=== PATIENT | male | born 1965 | race Caucasian/White ===

== ENCOUNTER 2022-06-01 05:57 | Day surgery (SDC) | payer OTHER ==
[2022-06-01] MEDS ORDERED: Lactated Ringers 1,000 ML IV SCH (06:30)
[2022-06-01] MEDS ORDERED: Xylocaine-Mpf 2% 5 Ml Vial ONE (07:27)
[2022-06-01] MEDS ORDERED: DIPRIVAN 200 MG/20 ML IV ONE (07:27)
[2022-06-01 08:40] VITALS: O2SAT 97
[2022-06-01 08:42] VITALS: BP 143/95; PULSE 68
--- NOTE | 2022-06-01 11:24 | OP ---
SURGERY DATE/TIME: 06/01/2022 0729 PREOPERATIVE DIAGNOSIS: Screening exam. POSTOPERATIVE DIAGNOSIS: Multiple small polyps in sigmoid colon and moderate diverticulosis. PROCEDURE: Colonoscopy with hot snare polypectomy. SURGEON: Dr. Ismael Johnson. ANESTHESIA: MAC. Medications given by anesthesia department. HISTORY: The patient is a 56-year-old white male patient presenting now for screening colonoscopy. He was appraised of the risks of the procedure including the risk of perforation, phlebitis, untoward reaction to medication, bleeding and missed lesions. The patient verbalized his understanding and desired to have the procedure performed. DESCRIPTION OF PROCEDURE: The patient was given the medications by the anesthesia department. He had continuous pulse oximetry, ECG monitoring, intermittent blood pressure monitoring during the examination. He was placed in the left lateral decubitus position. A digital rectal examination was performed and revealed normal anal sphincter tone, no masses and a normal prostate. The flexible Olympus pediatric colonoscope was used to intubate the rectum. A view of the colon was developed sequentially to the cecum. Upon insertion and withdrawal, including a retroflex view in the rectum was noted multiple small polyps and one larger polyp in the sigmoid colon. These were removed using hot polypectomy snare and retrieved for pathologic evaluation. No other mucosal lesions being encountered the scope was removed from the patient who tolerated the procedure well and was sent back to outpatient recovery in good condition. The prep was noted to be good.
== END 2022-06-01 08:55 | disposition home or self-care (01) ==
LOC: SDC 05:57
PROVIDERS: ATTEND Family Medicine
DX: Z12.11 Encounter for screening for malignant neoplasm of colon (principal); D12.7 Benign neoplasm of rectosigmoid junction; D12.5 Benign neoplasm of sigmoid colon; K57.30 Diverticulosis of large intestine without perforation or abscess without bleeding; E11.9 Type 2 diabetes mellitus without complications
CPT/HCPCS: 82947; J2704

== ENCOUNTER 2022-11-25 08:40 | Day surgery (SDC) | payer MEDICARE ==
[2022-11-25] MEDS ORDERED: LIDOCAINE HCL 1% 50 MG/5 ML VL PF IJ ONE (08:41)
[2022-11-25] MEDS ORDERED: Depo-Medrol 40 MG/ML IM ONE (08:41)
[2022-11-25] MEDS ORDERED: Sodium Chloride 0.9(Preservative Free) 10 ML IJ ONE (08:41)
[2022-11-25] MEDS ORDERED: DIPRIVAN 200 MG/20 ML IV ONE (10:08)
--- NOTE | 2022-11-25 10:50 | XRAY ---
Indication: Lumbar ROSELYN. Intraoperative fluoroscopy was provided for 13 seconds. 2 digital spot image submitted for interpretation demonstrates posterior needle tip projecting posterior to the lumbosacral junction interspace. Small amount of contrast injected for needle tip placement. Correlate with intraoperative findings/report.
--- NOTE | 2022-11-25 11:34 | XRAY ---
13 seconds of fluoroscopy was used in surgery for a lumbar ROSELYN.
[2022-11-25] MEDS ORDERED: Lactated Ringers 1,000 ML IV ONE (15:16)
== END 2022-11-25 10:50 | disposition home or self-care (01) ==
LOC: SDC-PAIN 08:40
PROVIDERS: ATTEND Psychiatry & Neurology Pain Medicine
DX: M54.16 Radiculopathy, lumbar region (principal); E11.9 Type 2 diabetes mellitus without complications; Z79.899 Other long term (current) drug therapy
CPT/HCPCS: 62323; 72100; 77003; 82947; J1030; J2001; J2704; Q9966

== ENCOUNTER 2024-03-18 17:06 | Emergency (ER) | payer MEDICARE ==
[2024-03-18] MEDS ORDERED: Adenocard IV 6 MG/2 ML IV ONE ×3 (17:07→17:12)
[2024-03-18 17:09] VITALS: PULSE 181; O2SAT 99
[2024-03-18] MEDS ORDERED: CARDIZEM DRIP 100 MG/100 ML D5W 0 ML IV ONE (17:14)
[2024-03-18] MEDS ORDERED: CARDIZEM DRIP 100 MG/100 ML D5W 100 ML IV ONE (17:16)
[2024-03-18] MEDS ORDERED: AMIODARONE IV ONE (17:17)
[2024-03-18] MEDS ORDERED: Cordarone 150 MG/3 ML Injection ONE (17:24)
[2024-03-18] MEDS ORDERED: Sodium Chloride 0.9% 100 ML ONE (17:25)
[2024-03-18 17:27] LABS: BASOPHIL % 0.8 % (0.2-1.2); Basophil (Absolute #) 0.08 x10^3/uL (0.01-0.08); Eosinophil % 1.4 % (0.8-7.0); Eosinophil (Absolute #) 0.14 x10^3/uL (0.04-0.54); Hematocrit 44.4 % (40.1-51.0); Hemoglobin 15.3 g/dL (13.7-17.5); IMMATURE GRAN # 0.03 x10^3u/L (0.001-0.031); IMMATURE GRAN % 0.3 % (0.001-0.429); Mean Cell Volume 96.5 fL (79.0-92.2); Mean Corpuscular Hemoglobin 33.3 pg (25.7-32.2); Mean Corpuscular Hgb Concent. 34.5 g/dL (32.3-36.5); Mean Platelet Volume 9.3 fL (9.4-12.4); Monocyte (Absolute #) 0.96 x10^3/uL (0.30-0.82); Monocytes % 9.6 % (5.3-12.2); Neutrophil % 56.9 % (34.0-67.9); Platelet Count 251 x10^3/uL (163-337); Red Cell Distribution Width 12.9 % (11.6-14.4)
[2024-03-18] MEDS ORDERED: Sodium Chloride 0.9% 1000 ML 1,000 ML ONE (17:39)
[2024-03-18 17:44] LABS: INR 1.21 (0.8-3.0)
--- NOTE | 2024-03-18 17:48 | ERPHSYRPT ---
- History of Present Illness Time Seen by Provider: 03/18/24 17:40 Source: patient, family Exam Limitations: no limitations Patient Subjective Stated Complaint: SVT Triage Nursing Assessment: Pt brought to the ER by his , tachycardic, denies pain, has a pacemaker and defibrillator, pt's heart rate is 185 bpm, pulses bounding, skin n/w/d, hx of NM, recently found out that he has 2 DVT's Physician History: Patient is 58-year-old male with significant past medical history of coronary artery disease stent placement into coronary arteries history of diabetes history of hypertension history of myocardial infarction history of defibrillator placement history of recent deep vein thrombosis and thrombophlebitis in lower extremity history of hypogonadism and history of Centi petal obesity abdominal obesity was in his usual state of health around 2 hours ago after he ate suddenly he started feeling palpitation he felt like his heart is going to come out so he was brought into the emergency room via private car by his . When patient walked into the emergency room patient is alert awake the only complaint he has was palpitation and feels like his heart is going to jump out he denies any chest pain except for some burning pain on the right side of the chest he denies any nausea vomiting fever chills any blood in the stool or urine. Recently patient underwent some investigation for lower extremity and they found to have a thrombophlebitis in deep vein thrombosis so patient was started on Xarelto for last 2 days and patient is already on Plavix. Patient denies any shortness of breath headache nausea vomiting. Patient is alert awake oriented to time place and person and answering all the question about his health in the emergency room. Timing/Duration: today Activities at Onset: none Severity of Pain-Max: none Severity of Pain-Current: none Modifying Factors: Improves With: nothing Nitro Today/Relief: no nitro taken today Aspirin Treatment Today: no aspirin today Associated Symptoms: No nausea, No vomiting, No abdominal pain, No shortness of breath, No heartburn, No syncope Prior Chest Pain/Cardiac Workup: cardiac cath, echocardiography, heart attack Allergies/Adverse Reactions: No Known Drug Allergies Allergy (Verified 03/18/24 17:22) Home Medications: Aspirin EC 81 mg [Ecotrin 81 mg] 81 mg PO DAILY 05/15/22 [History] Atorvastatin Calcium 40 mg PO DAILY 05/15/22 [History] Clopidogrel Bisulfate [Clopidogrel] 75 mg PO DAILY 05/15/22 [History] Fenofibrate Nanocrystallized [Fenofibrate] 145 mg PO DAILY 05/15/22 [History] Glipizide 10 mg [Glucotrol 10 MG] 10 mg PO BID 05/15/22 [History] Levothyroxine Sodium [Synthroid] 175 mg PO DAILY 05/15/22 [History] Meloxicam 15 mg [Meloxicam 15 MG] 15 mg PO DAILY 05/15/22 [History] Metformin HCl 500 mg [Glucophage 500 MG] 1,000 mg PO BID 05/15/22 [History] Metoprolol Tartrate 50 mg [Lopressor 50 MG] 50 mg PO DAILY 05/15/22 [History] Nitroglycerin 0.4 mg (Ed) [Nitrostat 0.4 MG (ED)] 0.4 mg PO UD PRN 05/15/22 [History] Sacubitril/Valsartan [Entresto 49 mg-51 mg Tablet] 1 tab PO DAILY 05/15/22 [History] Testosterone Cypionate 1 ml IM UD 05/15/22 [History] Hydrocodone/Acetaminophen [Hydrocodone-Acetamin 7.5-325] 1 tab PO TID 03/18/24 [History] Rivaroxaban [Xarelto] 20 mg PO BID 03/18/24 [History] Hx Tetanus, Diphtheria Vaccination/Date Given: Yes Hx Influenza Vaccination/Date Given: Yes Hx Pneumococcal Vaccination/Date Given: No Travel Risk - International Travel Have you traveled outside of the country in past 3 weeks: No - Emerging Infectious Disease Are you exhibiting symptoms associated with any current EIDs: No - Review of Systems Constitutional: No Fever, No Chills Eyes: No Symptoms Ears, Nose, & Throat: No Symptoms Respiratory: No Cough, No Dyspnea Cardiac: Palpitations, No Chest Pain, No Edema, No Syncope Abdominal/Gastrointestinal: No Abdominal Pain, No Nausea, No Vomiting, No Diarrhea Genitourinary Symptoms: No Dysuria Musculoskeletal: No Back Pain, No Neck Pain Skin: No Rash Neurological: No Dizziness, No Focal Weakness, No Sensory Changes Psychological: No Symptoms Endocrine: No Symptoms All Other Systems: Reviewed and Negative - Past Medical History Pertinent Past Medical History: Yes Neurological History: Migraines Cardiac History: Congestive Heart Failure, High Cholesterol, Hypertension, Myocardial Infarction (NM) Respiratory History: CHF Endocrine Medical History: Diabetes Type II, Hypothyroidism Musculoskeletal History: Fractures, Osteoarthritis, Osteoporosis GI Medical History: No Pertinent History History: No Pertinent History Psycho-Social History: No Pertinent History Male Reproductive Disorders: No Pertinent History Other Medical History: PMHX: NM 2017 WITH STENT X 2 AND PACEMAKER/DEFIB 12/2020 - Past Surgical History Past Surgical History: Yes Neuro Surgical History: No Pertinent History Cardiac: Cardiac Stent, Pacemaker Respiratory: No Pertinent History Gastrointestinal: Other Genitourinary: No Pertinent History Musculoskeletal: No Pertinent History Male Surgical History: No Pertinent History Other Surgical History: colonoscopy, 2 cardiac stints - Social History Smoking Status: Current every day smoker How long have you smoked: 35 Exposure to second hand smoke: Yes Drug Use: none Patient Lives Alone: No - Social Determinants of Health Will the patient participate in the screening: Yes Do you worry about a steady place to live?: No Do you have any problems with any of the following?: No known problems In the past 12 months,have you had to go without utilities?: No Transportation Issues: No Has anyone in your support network made you feel unsafe?: No Have you or anyone in your house had to go without enough: No - Nursing Vital Signs Nursing Vital Signs: Initial Vital Signs Pulse Rate 181 H 03/18/24 17:07 Respiratory Rate 17 03/18/24 17:07 Blood Pressure 138/103 03/18/24 17:07 O2 Sat by Pulse Oximetry 99 03/18/24 17:07 Pain Scale Pain Intensity 0 - Physical Exam General Appearance: no apparent distress, alert Eye Exam: PERRL/EOMI, eyes nml inspection Ears, Nose, Throat Exam: normal ENT inspection, moist mucous membranes Neck Exam: normal inspection, non-tender, supple Respiratory Exam: normal breath sounds, lungs clear, No respiratory distress Cardiovascular Exam: tachycardia, No edema Gastrointestinal/Abdomen Exam: soft, No tenderness, No mass Back Exam: normal inspection, No CVA tenderness, No vertebral tenderness Extremity Exam: normal inspection, normal range of motion Neurologic Exam: alert, oriented x 3, cooperative, normal mood/affect, nml cerebellar function, sensation nml, No motor deficits Skin Exam: normal color, warm, dry Lymphatic Exam: No adenopathy SpO2: 99 - Course Nursing assessment & vital signs reviewed: Yes EKG Interpreted by Me: SVT Rhythm Strip: SVT - Radiology Exams Chest X-ray Interpretation: Interpreted by me, Reviewed by me Ordered Tests: Active Orders 24 hr Category Date Time Status Oyster Opener STAT Care 03/18/24 17:37 Active CHEST 1 VIEW (PORTABLE) Stat Exams 03/18/24 17:23 Ordered CBC W DIFF Stat Lab 03/18/24 17:15 Completed CMP Stat Lab 03/18/24 17:15 Completed MAGNESIUM Stat Lab 03/18/24 17:15 Completed NT PRO BNPII Stat Lab 03/18/24 17:15 Completed PT INR [PROTIME WITH INR] Stat Lab 03/18/24 17:15 Completed PTT Stat Lab 03/18/24 17:15 Completed TROPONIN Q4H Lab 03/18/24 17:15 Completed TROPONIN Q4H Lab 03/18/24 21:30 Ordered Medication Summary Discontinued Medications Generic Name Dose Route Start Last Admin Trade Name Freq PRN Reason Stop Dose Admin Amiodarone HCl Confirm 03/18/24 17:24 Amiodarone Hcl 150 Mg/3 Ml Vial Administered 03/18/24 17:25 Dose 150 mg .ROUTE .STK-MED ONE Diltiazem HCl Confirm 03/18/24 17:14 Cardizem Drip 100 Mg/100 Ml D5w Administered 03/18/24 17:15 Dose 100 mls @ ud IV .STK-MED ONE Diltiazem HCl Confirm 03/18/24 17:16 Cardizem Drip 100 Mg/100 Ml D5w Administered 03/18/24 17:17 Dose 100 mls @ ud IV .STK-MED ONE Amiodarone HCl/Dextrose Confirm 03/18/24 17:17 Nexterone 360 Mg/200 Ml Bag Administered 03/18/24 17:18 Dose 360 mg in 200 mls @ ud IV .STK-MED ONE Sodium Chloride Confirm 03/18/24 17:25 Sodium Chloride 0.9% Administered 03/18/24 17:26 Dose 100 mls @ ud .ROUTE .STK-MED ONE Sodium Chloride Confirm 03/18/24 17:39 Sodium Chloride 0.9% 1000 Ml Administered 03/18/24 17:40 Dose 1,000 mls @ ud .ROUTE .STK-MED ONE Lab/Rad Data: Laboratory Result Diagrams 03/18/24 17:15 03/18/24 17:15 Laboratory Results 03/18/24 03/18/24 03/18/24 Range/Units 17:15 17:15 17:15 WBC (4.23-9.07) x10^3/uL RBC (4.63-6.08) x10^6/uL Hgb (13.7-17.5) g/dL Hct (40.1-51.0) % MCV (79.0-92.2) fL MCH (25.7-32.2) pg MCHC (32.3-36.5) g/dL RDW (11.6-14.4) % Plt Count (163-337) x10^3/uL MPV (9.4-12.4) fL Gran % (34.0-67.9) % Immature Gran % (Auto) (0.001-0.429) % Nucleat RBC Rel Count (0.00-0.2) % Eos # (Auto) (0.04-0.54) x10^3/uL Immature Gran # (Auto) (0.001-0.031) x10^3u/L Absolute Lymphs (auto) (1.32-3.57) x10^3/uL Absolute Monos (auto) (0.30-0.82) x10^3/uL Absolute Nucleated RBC (0.00-0.012) x10^3u/L Lymphocytes % (21.8-53.1) % Monocytes % (5.3-12.2) % Eosinophils % (0.8-7.0) % Basophils % (0.2-1.2) % Absolute Granulocytes (1.78-5.38) x10^3/uL Basophils # (0.01-0.08) x10^3/uL PT 13.0 H (9.4-12.5) SECONDS INR 1.21 (0.8-3.0) APTT 39.0 H (25.1-36.5) SECONDS Sodium 137 (135-145) mmol/L Potassium 3.9 (3.5-5.1) mmol/L Chloride 104 (98-107) mmol/L Carbon Dioxide 21 L (22-30) mmol/L Anion Gap 15.1 H (5-15) MEQ/L BUN 19 (9-20) mg/dL Creatinine 1.07 (0.66-1.25) mg/dL Estimated GFR 80.9 ML/MIN Glucose 133 H (74-106) mg/dL Calcium 9.5 (8.4-10.2) mg/dL Magnesium 1.8 (1.6-2.3) mg/dL Total Bilirubin 0.50 (0.2-1.3) mg/dL AST 33 (17-59) U/L ALT 29 (0-50) U/L Alkaline Phosphatase 40 (38-126) U/L Troponin I < 0.012 (0.000-0.033) ng/mL NT-Pro-B Natriuret Pep 96.1 (<300) pg/mL Serum Total Protein 7.5 (6.3-8.2) g/dL Albumin 4.6 (3.5-5.0) g/dL 03/18/24 Range/Units 17:15 WBC 10.0 H (4.23-9.07) x10^3/uL RBC 4.60 L (4.63-6.08) x10^6/uL Hgb 15.3 (13.7-17.5) g/dL Hct 44.4 (40.1-51.0) % MCV 96.5 H (79.0-92.2) fL MCH 33.3 H (25.7-32.2) pg MCHC 34.5 (32.3-36.5) g/dL RDW 12.9 (11.6-14.4) % Plt Count 251 (163-337) x10^3/uL MPV 9.3 L (9.4-12.4) fL Gran % 56.9 (34.0-67.9) % Immature Gran % (Auto) 0.3 (0.001-0.429) % Nucleat RBC Rel Count 0.0 (0.00-0.2) % Eos # (Auto) 0.14 (0.04-0.54) x10^3/uL Immature Gran # (Auto) 0.03 (0.001-0.031) x10^3u/L Absolute Lymphs (auto) 3.10 (1.32-3.57) x10^3/uL Absolute Monos (auto) 0.96 H (0.30-0.82) x10^3/uL Absolute Nucleated RBC 0.00 (0.00-0.012) x10^3u/L Lymphocytes % 31.0 (21.8-53.1) % Monocytes % 9.6 (5.3-12.2) % Eosinophils % 1.4 (0.8-7.0) % Basophils % 0.8 (0.2-1.2) % Absolute Granulocytes 5.70 H (1.78-5.38) x10^3/uL Basophils # 0.08 (0.01-0.08) x10^3/uL PT (9.4-12.5) SECONDS INR (0.8-3.0) APTT (25.1-36.5) SECONDS Sodium (135-145) mmol/L Potassium (3.5-5.1) mmol/L Chloride (98-107) mmol/L Carbon Dioxide (22-30) mmol/L Anion Gap (5-15) MEQ/L BUN (9-20) mg/dL Creatinine (0.66-1.25) mg/dL Estimated GFR ML/MIN Glucose (74-106) mg/dL Calcium (8.4-10.2) mg/dL Magnesium (1.6-2.3) mg/dL Total Bilirubin (0.2-1.3) mg/dL AST (17-59) U/L ALT (0-50) U/L Alkaline Phosphatase (38-126) U/L Troponin I (0.000-0.033) ng/mL NT-Pro-B Natriuret Pep (<300) pg/mL Serum Total Protein (6.3-8.2) g/dL Albumin (3.5-5.0) g/dL - Progress Progress: unchanged Air Movement: good Progress Note: 03/18/24 17:45 As soon as patient was put on bed after getting IV access adenosine 6 mg followed by 12 mg IV given. It did not reduce the patient heart rate. Patient was given 20 mg Cardizem IV push and followed by 10 mg/h Cardizem drip started which also did not really decrease the heart rate. Patient is also given amiodarone 150 mg bolus which also did not reduce patient's heart rate. Dr. Carvalho cardiology service who is covering for Dr. Lagunas) patient is seeing Dr. Riggins he has a manufacturing teacher (close. He advised patient to be transferred to [facility]. [facility] transfer center contacted. Dr. Jasso hospitalist call and I gave all the information about patient. We are waiting for ICU bed at [facility]. Blood Culture(s) Obtained: No Antibiotics given: No Discussed with Dr.: Other (Dr Carvalho (Cardiology) Dr Jasso ( Hospitalist)) Will see patient in: other (Transfer to [facility] ICU Rm [id number]) - Departure Departure Disposition: Transfer ([facility] ICU) Clinical Impression: Ventricular tachyarrhythmia Condition: Fair Critical Care Time: Yes Critical Care Time(excluding separately billable procedures): Critical 30-74 mins Referrals: JJ STEPHENS, [employer] [Primary Care Provider] - Follow up/PCP as directed Instructions: Tachycardia (DC)
[2024-03-18 17:49] VITALS: BP 101/78; RESP 12
[2024-03-18 17:52] LABS: ALBUMIN 4.6 g/dL (3.5-5.0); ANION GAP 15.1 MEQ/L (5-15); BILIRUBIN,TOTAL 0.5 mg/dL (0.2-1.3); Calcium 9.5 mg/dL (8.4-10.2); Creatinine 1 1.07 mg/dL (0.66-1.25); EST GLOMERULAR FILTRATION RATE 80.9 ML/MIN; MAGNESIUM 1.8 mg/dL (1.6-2.3); NT PRO BNPII 96.1 pg/mL (<300); Potassium 3.9 mmol/L (3.5-5.1); Total Protein 7.5 g/dL (6.3-8.2)
[2024-03-18] MEDS ORDERED: VERSED 5 MG/5 ML ONE (18:07)
== END 2024-03-18 18:15 | disposition short-term general hospital (02) ==
LOC: ED 17:06
DX: R00.2 Palpitations (principal); F17.200 Nicotine dependence, unspecified, uncomplicated; R00.0 Tachycardia, unspecified; Z79.01 Long term (current) use of anticoagulants; Z79.899 Other long term (current) drug therapy; I25.2 Old myocardial infarction; I11.0 Hypertensive heart disease with heart failure; I50.9 Heart failure, unspecified
CPT/HCPCS: 36000; 36415; 80053; 83735; 83880; 84484; 85025; 85610; 85730; 93005; 93041; 99284; 99291; J0153; J0282; J2250

== ENCOUNTER 2024-11-09 05:48 | Observation (INO) | payer MEDICARE ==
--- NOTE | 2024-11-09 06:38 | ERPHSYRPT ---
- History of Present Illness Time Seen by Provider: 11/09/24 06:00 Historian: patient Exam Limitations: no limitations Patient Subjective Stated Complaint: pt reports RLQ abdominal pain beginning 11/08/24, reports his pain has increased since that time, pt reports he has diverticulitis but this does not feel like that type of pain, reports normal BM this morning. pt reports he had a heart cath on 10/30/24. Triage Nursing Assessment: pt is aox3, pupils perrl, afebrile, resps easy and non labored, cap refill < 3 seconds, radial pulses strong and equal, pt abd round, tender to the RLQ, bowel sounds present. pt skin pink warm dry. Physician History: Patient is a 58-year-old male history of diabetes hypertension hypercholesterolemia congestive heart failure [place] with cardiac stent, PE current smoker on Xarelto presents to our ED for evaluation of right lower quadrant pain. Patient states pain started yesterday and has got progressively worse. Pain described as an ache that is localized. No radiation. Patient states he has a history of diverticulitis but states that the current symptomology feels different. No associated nausea or vomiting. No chest pain or shortness of breath. No diarrhea no rash. Last bowel movement was this morning. Patient states he was normal. Patient advises that he had a heart cath on October 30, 2024. The right groin was accessed. However patient states that the pain is much more proximal in the abdomen. Symptoms are moderate in intensity. Patient declined pain medication. He voices no other complaints or concerns at this time. Portions of this note were created with voice recognition technology. There may be grammatical, spelling, punctuation or sound alike errors Timing/Duration: yesterday Activities at Onset: none Quality: aching Abdominal Pain Onset Location: RLQ Pain Radiation: no radiation Severity of Pain-Max: moderate Severity of Pain-Current: mild Modifying Factors: Improves With: palpation Associated Symptoms: denies symptoms Previous symptoms: no prior history Allergies/Adverse Reactions: No Known Drug Allergies Allergy (Verified 11/09/24 06:08) Home Medications: Aspirin EC 81 mg [Ecotrin 81 mg] 81 mg PO DAILY 05/15/22 [History] Atorvastatin Calcium 40 mg PO DAILY 05/15/22 [History] Fenofibrate Nanocrystallized [Fenofibrate] 145 mg PO DAILY 05/15/22 [History] Glipizide 10 mg [Glucotrol 10 MG] 10 mg PO BID 05/15/22 [History] Levothyroxine Sodium [Synthroid] 175 mg PO DAILY 05/15/22 [History] Nitroglycerin 0.4 mg (Ed) [Nitrostat 0.4 MG (ED)] 0.4 mg PO UD PRN 05/15/22 [History] Testosterone Cypionate 1 ml IM UD 05/15/22 [History] Rivaroxaban [Xarelto] 20 mg PO DAILY 03/18/24 [History] Clopidogrel Bisulfate [Clopidogrel] 75 mg PO DAILY 11/09/24 [History] Hydrocodone/Acetaminophen [Hydrocodone-Acetamin 10-325 mg] 1 each PO TID 11/09/24 [History] Spironolactone 25 mg [Aldactone 25 MG] 50 mg PO DAILY 11/09/24 [History] Valsartan 320 mg PO DAILY 11/09/24 [History] carvediloL [Carvedilol] 37.5 mg PO DAILY 11/09/24 [History] Hx Tetanus, Diphtheria Vaccination/Date Given: Yes Hx Influenza Vaccination/Date Given: No Hx Pneumococcal Vaccination/Date Given: No Immunizations Up to Date: No Travel Risk - International Travel Have you traveled outside of the country in past 3 weeks: No - Emerging Infectious Disease Are you exhibiting symptoms associated with any current EIDs: No - Review of Systems Constitutional: No Symptoms, No Fever, No Chills Eyes: No Symptoms Ears, Nose, & Throat: No Symptoms Respiratory: No Symptoms, No Cough, No Dyspnea Cardiac: No Symptoms, No Chest Pain, No Edema, No Syncope Abdominal/Gastrointestinal: No Symptoms, No Abdominal Pain, No Nausea, No Vomiting, No Diarrhea Genitourinary Symptoms: No Symptoms, No Dysuria Musculoskeletal: No Symptoms, No Back Pain, No Neck Pain Skin: No Symptoms, No Rash Neurological: No Symptoms, No Dizziness, No Focal Weakness, No Sensory Changes Psychological: No Symptoms Endocrine: No Symptoms Hematologic/Lymphatic: No Symptoms Immunological/Allergic: No Symptoms All Other Systems: Reviewed and Negative - Past Medical History Pertinent Past Medical History: Yes Neurological History: Migraines Cardiac History: Congestive Heart Failure, High Cholesterol, Hypertension, Myocardial Infarction ([place]) Respiratory History: CHF, Pulmonary Embolism Endocrine Medical History: Diabetes Type II, Hypothyroidism Musculoskeletal History: Fractures, Osteoarthritis, Osteoporosis GI Medical History: No Pertinent History History: No Pertinent History Psycho-Social History: No Pertinent History Male Reproductive Disorders: No Pertinent History Other Medical History: PMHX: [place] 2017 WITH STENT X 2 AND PACEMAKER/DEFIB 12/2020. Cardiology: [facility]. 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 - Past Surgical History Past Surgical History: Yes Neuro Surgical History: No Pertinent History Cardiac: Cardiac Stent, Internal Defibrillator, Pacemaker Respiratory: No Pertinent History Gastrointestinal: Hernia Repair, Other Genitourinary: No Pertinent History Musculoskeletal: No Pertinent History Male Surgical History: No Pertinent History Other Surgical History: colonoscopy, 2 cardiac stints - Social History Smoking Status: Current every day smoker How long have you smoked: 35 Exposure to second hand smoke: Yes Drug Use: none - Social Determinants of Health Will the patient participate in the screening: Yes Do you worry about a steady place to live?: No Do you have any problems with any of the following?: No known problems In the past 12 months,have you had to go without utilities?: No Transportation Issues: No Has anyone in your support network made you feel unsafe?: No Have you or anyone in your house had to go w/o enough food: No - Nursing Vital Signs Nursing Vital Signs: Initial Vital Signs Temperature 97 F 11/09/24 05:53 Pulse Rate 70 11/09/24 05:53 Respiratory Rate 18 11/09/24 05:53 Blood Pressure 147/89 11/09/24 05:53 O2 Sat by Pulse Oximetry 100 11/09/24 05:53 Pain Scale Pain Intensity 6 - Physical Exam General Appearance: no apparent distress, alert Eye Exam: PERRL/EOMI, eyes nml inspection Ears, Nose, Throat Exam: normal ENT inspection, moist mucous membranes Neck Exam: normal inspection, full range of motion Respiratory Exam: normal breath sounds, lungs clear, No respiratory distress Cardiovascular Exam: regular rate/rhythm, normal heart sounds Gastrointestinal/Abdomen Exam: soft, tenderness (Tenderness palpation right lower quadrant at McBurney's point. Overlying soft tissue intact. No signs of trauma.), No mass Back Exam: normal inspection, normal range of motion, No CVA tenderness, No vertebral tenderness Extremity Exam: normal inspection, normal range of motion, pelvis stable Neurologic Exam: alert, oriented x 3, cooperative, normal mood/affect, sensation nml, No motor deficits Skin Exam: normal color, warm, dry Lymphatic Exam: No adenopathy SpO2 Interpretation: normal SpO2: 100 O2 Delivery: Room Air - Course Nursing assessment & vital signs reviewed: Yes Ordered Tests: Active Orders 24 hr Category Date Time Status IV Insertion STAT Care 11/09/24 06:13 Active ABDOMEN AND PELVIS W/0 CONTRAS [CT] Stat Exams 11/09/24 06:13 Taken CBC W DIFF Stat Lab 11/09/24 06:46 Completed CMP Stat Lab 11/09/24 06:46 Received TROPONIN Q4H Lab 11/09/24 06:46 Received TROPONIN Q4H Lab 11/09/24 10:15 Ordered TROPONIN Q4H Lab 11/09/24 14:15 Ordered UA W/RFX UR CULTURE Stat Lab 11/09/24 06:22 Received Lab/Rad Data: Laboratory Result Diagrams 11/09/24 06:46 Laboratory Results 11/09/24 Range/Units 06:46 WBC 9.7 H (4.23-9.07) x10^3/uL RBC 3.86 L (4.63-6.08) x10^6/uL Hgb 12.6 L (13.7-17.5) g/dL Hct 37.6 L (40.1-51.0) % MCV 97.4 H (79.0-92.2) fL MCH 32.6 H (25.7-32.2) pg MCHC 33.5 (32.3-36.5) g/dL RDW 13.0 (11.6-14.4) % Plt Count 236 (163-337) x10^3/uL MPV 9.0 L (9.4-12.4) fL Gran % 81.7 H (34.0-67.9) % Immature Gran % (Auto) 0.5 H (0.001-0.429) % Nucleat RBC Rel Count 0.0 (0.00-0.2) % Eos # (Auto) 0.10 (0.04-0.54) x10^3/uL Immature Gran # (Auto) 0.05 H (0.001-0.031) x10^3u/L Absolute Lymphs (auto) 0.95 L (1.32-3.57) x10^3/uL Absolute Monos (auto) 0.64 (0.30-0.82) x10^3/uL Absolute Nucleated RBC 0.00 (0.00-0.012) x10^3u/L Lymphocytes % 9.8 L (21.8-53.1) % Monocytes % 6.6 (5.3-12.2) % Eosinophils % 1.0 (0.8-7.0) % Basophils % 0.4 (0.2-1.2) % Absolute Granulocytes 7.87 H (1.78-5.38) x10^3/uL Basophils # 0.04 (0.01-0.08) x10^3/uL - Progress Progress: improved Progress Note: 58-year-old male presents to emergency department for evaluation of right lower quadrant pain. Physical exam significant for tenderness palpation of right lower quadrant at McBurney's point. Patient declined pain medication. Lab workup ordered. Results pending. CT abdomen pelvis ordered. Results pending. It is currently the change of shift. Patient endorsed to incoming physician who will follow up on labs and imaging studies and make final disposition. Portions of this note were created with voice recognition technology. There may be grammatical, spelling, punctuation or sound alike errors Complexity of problem addressed is moderate acute complicated. No critical care time. Complexity of data reviewed and analyzed is extensive. Test ordered test reviewed results analyzed and correlated clinically with history and physical exam. Risk of complication and or risk of morbidity/mortality of patient management is high. Vital stable. Time spent to disposition patient is approximately 15 minutes. Plan of care established for shared decision making. No social determinants of health present to impede follow-up. Portions of this note were created with voice recognition technology. There may be grammatical, spelling, punctuation or sound alike errors 11/09/24 06:41 Counseled pt/family regarding: lab results, diagnosis, rad results - Departure Departure Disposition: Observation Clinical Impression: Right lower quadrant pain Condition: Stable Critical Care Time: No Referrals: JJ STEPHENS NP [Primary Care Provider, [facility]] - Follow up/PCP as directed
[2024-11-09 06:48] LABS: Absolute Neutrophil Ct (ANC) 7.87 x10^3/uL (1.78-5.38); BASOPHIL % 0.4 % (0.2-1.2); Basophil (Absolute #) 0.04 x10^3/uL (0.01-0.08); Hematocrit 37.6 % (40.1-51.0); Hemoglobin 12.6 g/dL (13.7-17.5); IMMATURE GRAN # 0.05 x10^3u/L (0.001-0.031); IMMATURE GRAN % 0.5 % (0.001-0.429); Lymphocyte (Absolute #) 0.95 x10^3/uL (1.32-3.57); Lymphocytes % 9.8 % (21.8-53.1); Mean Cell Volume 97.4 fL (79.0-92.2); Mean Corpuscular Hemoglobin 32.6 pg (25.7-32.2); Mean Corpuscular Hgb Concent. 33.5 g/dL (32.3-36.5); Monocyte (Absolute #) 0.64 x10^3/uL (0.30-0.82); Monocytes % 6.6 % (5.3-12.2); Neutrophil % 81.7 % (34.0-67.9); Platelet Count 236 x10^3/uL (163-337); Red Blood Count 3.86 x10^6/uL (4.63-6.08); White Blood Count 9.7 x10^3/uL (4.23-9.07)
[2024-11-09 07:04] LABS: ALBUMIN 4.5 g/dL (3.5-5.0); ANION GAP 15.2 MEQ/L (5-15); BILIRUBIN,TOTAL 0.6 mg/dL (0.2-1.3); Creatinine 1 1.17 mg/dL (0.66-1.25); EST GLOMERULAR FILTRATION RATE 72.7 ML/MIN; Potassium 4.9 mmol/L (3.5-5.1); Total Protein 6.9 g/dL (6.3-8.2)
[2024-11-09 07:06] LABS: Appearance Clear (Clear); Bacteria None Seen /HPF (None Seen); Bilirubin Negative (Negative); Blood Negative (Negative); Epithelial Cells None Seen /HPF (None Seen); Glucose, Urine Negative (Negative); Hyaline Casts NONE SEEN /LPF (0-2); Ketones Negative (Negative); Leukocyte Esterase Negative (Negative); Nitrite Negative (Negative); Protein,Urine Dip Negative (Negative); RBC 0-2 /HPF (0-5); WBC 0-2 /HPF (0-5)
--- NOTE | 2024-11-09 07:51 | XRAY ---
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 Coronal and sagittal reconstructions were likewise performed and indicated to increase the sensitivity for detecting clinically relevant pathology. CT scan was performed according to ALARA (as low as reasonable achievable). FINDINGS: The visualized lung bases are clear. Small calcified granuloma noted in left lower lobe of lung.-stable. Evaluation of the abdominal and pelvic visceral organs is limited without intravenous contrast. The unenhanced liver, spleen, pancreas, and adrenal glands are grossly unremarkable. The gallbladder is present. The kidneys are normal in size and attenuation without obvious calcification. There is no hydronephrosis. Mild bilateral perinephric fat stranding The ureters are normal in caliber. No adenopathy or fluid collections are seen. No evidence of focal or diffuse bowel wall thickening or evidence of bowel obstruction is seen. The appendix is visualized in the right lower quadrant, measures 9mm in diameter with mild periappendiceal fat stranding. The aorta is normal in caliber. The urinary bladder is normal in contour. Pelvic viscera are grossly unremarkable. No aggressive appearing osseous lesions are identified. Multiple small uncomplicated colonic diverticulosis. Diffuse atherosclerotic calcification is noted involving aorta iliac arteries. Degenerative changes involving lumbar spine in the form of multilevel marginal osteophytes, disc space reduction and facetal arthrosis. IMPRESSION: 1. The appendix is visualized in the right lower quadrant, measures 9mm in diameter with mild periappendiceal fat stranding- acute appendicitis. 2. Mild bilateral perinephric fat stranding-stable. 3. Multiple small uncomplicated colonic diverticulosis.-stable. Electronically Signed by: Sharan Ames MD. (11/09/2024 07:48:26 EDT)
[2024-11-09] MEDS ORDERED: Sodium Chloride 0.9% 100 ML ONE (08:50)
[2024-11-09] MEDS ORDERED: PIPERACILLIN/TAZOBACTAM IV ONE (08:50)
[2024-11-09] MEDS: Sodium Chloride 0.9% 1000 ML 1,000 ML IV SCH (08:59)
[2024-11-09] MEDS: PIPERACILLIN/TAZOBACTAM 3.375 GM in Sodium Chloride 0.9% 100 ML IV STA (08:59)
--- NOTE | 2024-11-09 11:08 | PCM.HP ---
<GAUTAM YAO - Last Filed: 11/09/24 11:02> History of Present Illness - Chief Complaint Chief Complaint: Appendicitis Date: 11/09/24 History of Present Illness: is a 58 year old male with a complex cardiovascular history including hypertension, heart failure with reduced ejection fraction (reported EF 36%), prior myocardial infarction with known coronary artery disease status post two coronary stent placements, as well as a history of deep vein thrombosis and pulmonary embolism on chronic anticoagulation with rivaroxaban. He also has a history of ventricular tachycardia, hypothyroidism, type 2 diabetes mellitus, and diverticulitis who presented to the emergency department on 11/09/24 with acute onset right lower quadrant abdominal pain, which began the evening prior to presentation and has progressively worsened. The pain is described as sharp, stabbing, and constant, with an intensity of 7 out of 10. He denies associated systemic symptoms such as fever, nausea, or vomiting. On arrival, the patient was hemodynamically stable. Laboratory evaluation revealed a WBC of 9.7. He was also noted to have a macrocytic anemia with hemoglobin of 12.6, and an anion gap of 15.2. CT abdomen and pelvis confirmed findings consistent with acute appendicitis without evidence of perforation or abscess. Initial management included empiric broad-spectrum intravenous antibiotics with piperacillin- tazobactam and intravenous fluid resuscitation. Notably, the patient is on triple antithrombotic therapy with rivaroxaban, clopidogrel, and aspirin, with his last doses taken yesterday afternoon, posing increased perioperative bleeding risk. Given his high-risk cardiac and thrombotic profile, both surgical and cardiology consultations have been requested to assist with perioperative planning, anticoagulation management, and assessment of surgical risk tolerance. - Review of Systems Constitutional: No Symptoms Eyes: No Symptoms Ears, Nose, & Throat: No Symptoms Respiratory: No Symptoms Cardiac: No Symptoms Abdominal/Gastrointestinal: Abdominal Pain Genitourinary Symptoms: No Symptoms Musculoskeletal: No Symptoms Skin: No Symptoms Neurological: No Symptoms Psychological: No Symptoms Endocrine: No Symptoms Hematologic/Lymphatic: No Symptoms Immunological/Allergic: No Symptoms Medications & Allergies Home Medications: Home Medication List Atorvastatin Calcium 40 mg PO HS 05/15/22 [History Confirmed 11/09/24] Fenofibrate Nanocrystallized [Fenofibrate] 145 mg PO DAILY 05/15/22 [History Confirmed 11/09/24] Levothyroxine Sodium [Synthroid] 175 mcg PO DAILY 05/15/22 [History Confirmed 11/09/24] Nitroglycerin 0.4 mg (Ed) [Nitrostat 0.4 MG (ED)] 0.4 mg PO UD PRN 05/15/22 [History Confirmed 11/09/24] Acetaminophen 325 mg [Tylenol 325 mg] 650 mg PO Q4H PRN PRN tablet 11/09/24 [Rx] Docusate Sodium 100 mg [Docusate Sodium 100 MG] 100 mg PO BIDPRN PRN cap 11/09/24 [Rx] Hydrocodone/Acetaminophen [Hydrocodone-Acetamin 10-325 mg] 1 each PO TID 11/09/24 [History Confirmed 11/09/24] Hydromorphone 1 mg/1Ml Inj [Hydromorphone 1 mg/ml Injection] 0.5 mg IV Q4H PRN PRN 11/09/24 [Rx] Nicotine 21 mg [Nicoderm CQ 21 MG] 21 mg TOP Q24H10 patch 11/09/24 [Rx] Ondansetron HCl 4 mg/2 ml [Zofran 4 MG/2 ML VIAL] 4 mg IV Q6H PRN PRN 11/09/24 [Rx] Piperacillin/Tazobactam 3.375G [Piperacillin/Tazobactam] 3.375 gm IV Q6HT 11/09/24 [Rx] Spironolactone 25 mg [Aldactone 25 MG] 50 mg PO DAILY 11/09/24 [History Confirmed 11/09/24] Valsartan 320 mg PO DAILY 11/09/24 [History Confirmed 11/09/24] carvediloL [Carvedilol] 37.5 mg PO DAILY 11/09/24 [History Confirmed 11/09/24] Allergies/Adverse Reactions: Allergies Allergy/AdvReac Type Severity Reaction Status Date / Time No Known Drug Allergies Allergy Verified 11/09/24 06:08 - Past Medical History Past Medical History: Yes Neurological History: Migraines ENT History: No Pertinent History Cardiac History: Congestive Heart Failure, High Cholesterol, Hypertension, Myocardial Infarction ([place]) Respiratory History: CHF, Pulmonary Embolism Endocrine Medical History: Diabetes Type II, Hypothyroidism Musculoskelatal History: Fractures, Osteoarthritis, Osteoporosis GI Medical History: Diverticulitis History: No Pertinent History Pyscho-Social History: No Pertinent History Male Reproductive Disorders: No Pertinent History Comment: PMHX: [place] 2017 WITH STENT X 2 AND PACEMAKER/DEFIB 12/2020. Cardiology: [facility]. 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 - Past Surgical History Past Surgical History: Yes Neuro Surgical History: No Pertinent History Cardiac History: Cardiac Stent, Internal Defibrillator, Pacemaker Respiratory Surgery: No Pertinent History GI Surgical History: Hernia Repair, Other Genitourinary Surgical Hx: No Pertinent History Musculskeletal Surgical Hx: No Pertinent History Male Surgical History: No Pertinent History Other Surgical History: colonoscopy, 2 cardiac stints Significant Family History: heart disease, cancer - Social History Smoking Status: Current every day smoker How long have you smoked: 43 Exposure to second hand smoke: Yes Alcohol: None Drug Use: none - Social Determinants of Health Will the patient participate in the screening: Yes Do you worry about a steady place to live?: No Do you have any problems with any of the following?: No known problems In the past 12 months,have you had to go without utilities?: No Have you or anyone in your house had to go without enough: No Transportation Issues: No Has anyone in your support network made you feel unsafe?: No Does the patient want assistance with any of the above?: No - Physical Exam Vital Signs: Vital Signs - 24 hr Temp Pulse Resp BP BP Pulse Ox 11/09/24 10:17 97.6 F 67 16 128/69 96 11/09/24 09:26 97.6 F 67 16 128/69 96 11/09/24 09:00 62 16 118/71 98 11/09/24 08:30 62 20 124/76 97 11/09/24 08:00 68 16 133/74 99 11/09/24 07:31 65 15 133/74 99 11/09/24 07:00 66 17 108/69 98 11/09/24 06:54 100 11/09/24 06:31 66 11 L 127/75 98 11/09/24 06:00 63 12 148/83 99 11/09/24 05:53 97 F 70 18 147/89 100 General Appearance: no apparent distress Neurologic Exam: alert, oriented x 3, cooperative Eye Exam: PERRL/EOMI Ears, Nose, Throat Exam: normal ENT inspection Neck Exam: normal inspection Respiratory Exam: normal breath sounds, lungs clear Cardiovascular Exam: regular rate/rhythm, normal heart sounds Gastrointestinal/Abdomen Exam: soft, normal bowel sounds, tenderness, guarding, rebound, other (localized tenderness noted in the right lower quadrant, particularly at McBurney's point. There is guarding elicited on palpation but no rebound tenderness at this time. Rovsings sign is positive with referred pain to the RLQ upon palpation of the left lower quadrant. Psoas and obturator signs are) Rectal Exam: deferred Back Exam: normal inspection Extremity Exam: normal inspection Skin Exam: normal color Results - Labs Lab/Micro Results: Lab Results-Last 24 Hours 11/09/24 11/09/24 11/09/24 Range/Units 06:22 06:46 06:46 WBC 9.7 H (4.23-9.07) x10^3/uL RBC 3.86 L (4.63-6.08) x10^6/uL Hgb 12.6 L (13.7-17.5) g/dL Hct 37.6 L (40.1-51.0) % MCV 97.4 H (79.0-92.2) fL MCH 32.6 H (25.7-32.2) pg MCHC 33.5 (32.3-36.5) g/dL RDW 13.0 (11.6-14.4) % Plt Count 236 (163-337) x10^3/uL MPV 9.0 L (9.4-12.4) fL Gran % 81.7 H (34.0-67.9) % Immature Gran % (Auto) 0.5 H (0.001-0.429) % Nucleat RBC Rel Count 0.0 (0.00-0.2) % Eos # (Auto) 0.10 (0.04-0.54) x10^3/uL Immature Gran # (Auto) 0.05 H (0.001-0.031) x10^3u/L Absolute Lymphs (auto) 0.95 L (1.32-3.57) x10^3/uL Absolute Monos (auto) 0.64 (0.30-0.82) x10^3/uL Absolute Nucleated RBC 0.00 (0.00-0.012) x10^3u/L Lymphocytes % 9.8 L (21.8-53.1) % Monocytes % 6.6 (5.3-12.2) % Eosinophils % 1.0 (0.8-7.0) % Basophils % 0.4 (0.2-1.2) % Absolute Granulocytes 7.87 H (1.78-5.38) x10^3/uL Basophils # 0.04 (0.01-0.08) x10^3/uL Sodium 139 (135-145) mmol/L Potassium 4.9 (3.5-5.1) mmol/L Chloride 104 (98-107) mmol/L Carbon Dioxide 25 (22-30) mmol/L Anion Gap 15.2 H (5-15) MEQ/L BUN 23 H (9-20) mg/dL Creatinine 1.17 (0.66-1.25) mg/dL Estimated GFR 72.7 ML/MIN Glucose 159 H (74-106) mg/dL Calcium 10.0 (8.4-10.2) mg/dL Total Bilirubin 0.60 (0.2-1.3) mg/dL AST 22 (17-59) U/L ALT 23 (0-50) U/L Alkaline Phosphatase 41 (38-126) U/L Troponin I (0.000-0.033) ng/mL Serum Total Protein 6.9 (6.3-8.2) g/dL Albumin 4.5 (3.5-5.0) g/dL Urine Color Yellow (Yellow) Urine Appearance Clear (Clear) Urine pH 7.0 (4.6-8.0) Ur Specific [place] 1.020 (1.005-1.030) Urine Protein Negative (Negative) Urine Glucose (UA) Negative (Negative) mg/dL Urine Ketones Negative (Negative) Urine Blood Negative (Negative) Urine Nitrite Negative (Negative) Urine Bilirubin Negative (Negative) Urine Urobilinogen 1.0 A (0.2) mg/dL Ur Leukocyte Esterase Negative (Negative) U Hyaline Cast (Auto) NONE SEEN (0-2) /LPF Urine Microscopic RBC 0-2 (0-5) /HPF Urine Microscopic WBC 0-2 (0-5) /HPF Ur Epithelial Cells None Seen (None Seen) /HPF Urine Bacteria None Seen (None Seen) /HPF Urine Culture Reflexed NO (NO) 11/09/24 Range/Units 06:46 WBC (4.23-9.07) x10^3/uL RBC (4.63-6.08) x10^6/uL Hgb (13.7-17.5) g/dL Hct (40.1-51.0) % MCV (79.0-92.2) fL MCH (25.7-32.2) pg MCHC (32.3-36.5) g/dL RDW (11.6-14.4) % Plt Count (163-337) x10^3/uL MPV (9.4-12.4) fL Gran % (34.0-67.9) % Immature Gran % (Auto) (0.001-0.429) % Nucleat RBC Rel Count (0.00-0.2) % Eos # (Auto) (0.04-0.54) x10^3/uL Immature Gran # (Auto) (0.001-0.031) x10^3u/L Absolute Lymphs (auto) (1.32-3.57) x10^3/uL Absolute Monos (auto) (0.30-0.82) x10^3/uL Absolute Nucleated RBC (0.00-0.012) x10^3u/L Lymphocytes % (21.8-53.1) % Monocytes % (5.3-12.2) % Eosinophils % (0.8-7.0) % Basophils % (0.2-1.2) % Absolute Granulocytes (1.78-5.38) x10^3/uL Basophils # (0.01-0.08) x10^3/uL Sodium (135-145) mmol/L Potassium (3.5-5.1) mmol/L Chloride (98-107) mmol/L Carbon Dioxide (22-30) mmol/L Anion Gap (5-15) MEQ/L BUN (9-20) mg/dL Creatinine (0.66-1.25) mg/dL Estimated GFR ML/MIN Glucose (74-106) mg/dL Calcium (8.4-10.2) mg/dL Total Bilirubin (0.2-1.3) mg/dL AST (17-59) U/L ALT (0-50) U/L Alkaline Phosphatase (38-126) U/L Troponin I < 0.012 (0.000-0.033) ng/mL Serum Total Protein (6.3-8.2) g/dL Albumin (3.5-5.0) g/dL Urine Color (Yellow) Urine Appearance (Clear) Urine pH (4.6-8.0) Ur Specific [place] (1.005-1.030) Urine Protein (Negative) Urine Glucose (UA) (Negative) mg/dL Urine Ketones (Negative) Urine Blood (Negative) Urine Nitrite (Negative) Urine Bilirubin (Negative) Urine Urobilinogen (0.2) mg/dL Ur Leukocyte Esterase (Negative) U Hyaline Cast (Auto) (0-2) /LPF Urine Microscopic RBC (0-5) /HPF Urine Microscopic WBC (0-5) /HPF Ur Epithelial Cells (None Seen) /HPF Urine Bacteria (None Seen) /HPF Urine Culture Reflexed (NO) - Radiology Impressions Radiology Exams & Impressions: Radiology Procedures Category Date Time Status ABDOMEN AND PELVIS W/0 CONTRAS [CT] Stat Exams 11/09/24 06:13 Completed Assessment/Plan (1) Acute appendicitis Status: Acute Assessment & Plan: -CT abdomen and pelvis with contrast confirms findings consistent with acute appendicitis, without evidence of perforation, abscess, or phlegmon -Surgery consulted -Cardiology consulted for surgical clearance with extensive heart disease -Mild leukocytosis (WBC 9.7) with clinical signs of localized peritonitis (tenderness and guarding)- trend -NPO -Pain control -Zosyn started in ED- will continue Code(s): K35.80 - UNSPECIFIED ACUTE APPENDICITIS (2) Macrocytic anemia Status: Acute Assessment & Plan: -Defer full workup until after stabilization and resolution of acute process -Check B12, folate, TSH after surgery if not already known Code(s): D53.9 - NUTRITIONAL ANEMIA, UNSPECIFIED (3) Type 2 diabetes mellitus Status: Acute Assessment & Plan: -Blood glucose monitoring every 46 hours while NPO -Initiate basal insulin if needed; hold oral hypoglycemics while NPO -continue SSI once able to tolerate a diet -hypoglycemic protocol ordered (4) CAD (coronary artery disease) Status: Acute Assessment & Plan: -Cardiology consult for risk stratification and perioperative ischemia prophylaxis. -Monitor telemetry. -Perioperative management of antiplatelet therapy to be guided by surgery/cardiology Code(s): I25.10 - ATHSCL HEART DISEASE OF [place] CORONARY ARTERY W/O ANG PCTRS (5) Personal history of DVT (deep vein thrombosis) Status: Acute Assessment & Plan: -Hold rivaroxaban. -Assess need for bridging with short-acting anticoagulants perioperatively based on bleeding risk vs. thrombotic risk -Postoperative anticoagulation resumption to be carefully coordinated Code(s): Z86.718 - PERSONAL HISTORY OF OTHER VENOUS THROMBOSIS AND EMBOLISM (6) HTN (hypertension) Status: Acute Assessment & Plan: -stable continue BP meds Code(s): I10 - ESSENTIAL (PRIMARY) HYPERTENSION (7) HLD (hyperlipidemia) Status: Acute Assessment & Plan: -continue statin Code(s): E78.5 - HYPERLIPIDEMIA, UNSPECIFIED (8) Heart failure with reduced ejection fraction (HFrEF, <= 40%) Status: Acute Assessment & Plan: -Prevent volume overload and decompensation during acute illness and perioperative period - hold IVF -EF reported per pt at 36% - no record on file -Coordinate perioperative care with cardiology and anesthesia -continue home meds when able -Strict I&O/ daily weights/elevated HOB/ supplemental oxygen as needed to maintain spo2 > 92% Code(s): I50.20 - UNSPECIFIED SYSTOLIC (CONGESTIVE) HEART FAILURE (9) Hypothyroid Status: Acute Assessment & Plan: -continue levothyroxine VTE: SCD PPI: protonix Dispo: 1-2 days Code status: Full Code Code(s): E03.9 - HYPOTHYROIDISM, UNSPECIFIED <ANIVAL BRIGHT - Last Filed: 11/09/24 22:19> History of Present Illness - Chief Complaint History of Present Illness: is a 58 year old male. - Physical Exam Vital Signs: Vital Signs - 24 hr Temp Pulse Resp BP BP Pulse Ox 11/09/24 16:00 97.4 F 64 19 130/63 95 11/09/24 10:17 97.6 F 67 16 128/69 96 11/09/24 09:26 97.6 F 67 16 128/69 96 11/09/24 09:00 62 16 118/71 98 11/09/24 08:30 62 20 124/76 97 11/09/24 08:00 68 16 133/74 99 11/09/24 07:31 65 15 133/74 99 11/09/24 07:00 66 17 108/69 98 11/09/24 06:54 100 11/09/24 06:31 66 11 L 127/75 98 11/09/24 06:00 63 12 148/83 99 11/09/24 05:53 97 F 70 18 147/89 100 Results - Labs Lab/Micro Results: Lab Results-Last 24 Hours 11/09/24 11/09/24 11/09/24 Range/Units 06:22 06:46 06:46 WBC 9.7 H (4.23-9.07) x10^3/uL RBC 3.86 L (4.63-6.08) x10^6/uL Hgb 12.6 L (13.7-17.5) g/dL Hct 37.6 L (40.1-51.0) % MCV 97.4 H (79.0-92.2) fL MCH 32.6 H (25.7-32.2) pg MCHC 33.5 (32.3-36.5) g/dL RDW 13.0 (11.6-14.4) % Plt Count 236 (163-337) x10^3/uL MPV 9.0 L (9.4-12.4) fL Gran % 81.7 H (34.0-67.9) % Immature Gran % (Auto) 0.5 H (0.001-0.429) % Nucleat RBC Rel Count 0.0 (0.00-0.2) % Eos # (Auto) 0.10 (0.04-0.54) x10^3/uL Immature Gran # (Auto) 0.05 H (0.001-0.031) x10^3u/L Absolute Lymphs (auto) 0.95 L (1.32-3.57) x10^3/uL Absolute Monos (auto) 0.64 (0.30-0.82) x10^3/uL Absolute Nucleated RBC 0.00 (0.00-0.012) x10^3u/L Lymphocytes % 9.8 L (21.8-53.1) % Monocytes % 6.6 (5.3-12.2) % Eosinophils % 1.0 (0.8-7.0) % Basophils % 0.4 (0.2-1.2) % Absolute Granulocytes 7.87 H (1.78-5.38) x10^3/uL Basophils # 0.04 (0.01-0.08) x10^3/uL Sodium 139 (135-145) mmol/L Potassium 4.9 (3.5-5.1) mmol/L Chloride 104 (98-107) mmol/L Carbon Dioxide 25 (22-30) mmol/L Anion Gap 15.2 H (5-15) MEQ/L BUN 23 H (9-20) mg/dL Creatinine 1.17 (0.66-1.25) mg/dL Estimated GFR 72.7 ML/MIN Glucose 159 H (74-106) mg/dL POC Glucometer (74 to 106) mg/dL Calcium 10.0 (8.4-10.2) mg/dL Total Bilirubin 0.60 (0.2-1.3) mg/dL AST 22 (17-59) U/L ALT 23 (0-50) U/L Alkaline Phosphatase 41 (38-126) U/L Troponin I (0.000-0.033) ng/mL Serum Total Protein 6.9 (6.3-8.2) g/dL Albumin 4.5 (3.5-5.0) g/dL Urine Color Yellow (Yellow) Urine Appearance Clear (Clear) Urine pH 7.0 (4.6-8.0) Ur Specific [place] 1.020 (1.005-1.030) Urine Protein Negative (Negative) Urine Glucose (UA) Negative (Negative) mg/dL Urine Ketones Negative (Negative) Urine Blood Negative (Negative) Urine Nitrite Negative (Negative) Urine Bilirubin Negative (Negative) Urine Urobilinogen 1.0 A (0.2) mg/dL Ur Leukocyte Esterase Negative (Negative) U Hyaline Cast (Auto) NONE SEEN (0-2) /LPF Urine Microscopic RBC 0-2 (0-5) /HPF Urine Microscopic WBC 0-2 (0-5) /HPF Ur Epithelial Cells None Seen (None Seen) /HPF Urine Bacteria None Seen (None Seen) /HPF Urine Culture Reflexed NO (NO) ABO Group Rh Factor Antibody Screen (NEGATIVE) 11/09/24 11/09/24 11/09/24 Range/Units 06:46 10:47 11:45 WBC (4.23-9.07) x10^3/uL RBC (4.63-6.08) x10^6/uL Hgb (13.7-17.5) g/dL Hct (40.1-51.0) % MCV (79.0-92.2) fL MCH (25.7-32.2) pg MCHC (32.3-36.5) g/dL RDW (11.6-14.4) % Plt Count (163-337) x10^3/uL MPV (9.4-12.4) fL Gran % (34.0-67.9) % Immature Gran % (Auto) (0.001-0.429) % Nucleat RBC Rel Count (0.00-0.2) % Eos # (Auto) (0.04-0.54) x10^3/uL Immature Gran # (Auto) (0.001-0.031) x10^3u/L Absolute Lymphs (auto) (1.32-3.57) x10^3/uL Absolute Monos (auto) (0.30-0.82) x10^3/uL Absolute Nucleated RBC (0.00-0.012) x10^3u/L Lymphocytes % (21.8-53.1) % Monocytes % (5.3-12.2) % Eosinophils % (0.8-7.0) % Basophils % (0.2-1.2) % Absolute Granulocytes (1.78-5.38) x10^3/uL Basophils # (0.01-0.08) x10^3/uL Sodium (135-145) mmol/L Potassium (3.5-5.1) mmol/L Chloride (98-107) mmol/L Carbon Dioxide (22-30) mmol/L Anion Gap (5-15) MEQ/L BUN (9-20) mg/dL Creatinine (0.66-1.25) mg/dL Estimated GFR ML/MIN Glucose (74-106) mg/dL POC Glucometer 149 H (74 to 106) mg/dL Calcium (8.4-10.2) mg/dL Total Bilirubin (0.2-1.3) mg/dL AST (17-59) U/L ALT (0-50) U/L Alkaline Phosphatase (38-126) U/L Troponin I < 0.012 < 0.012 (0.000-0.033) ng/mL Serum Total Protein (6.3-8.2) g/dL Albumin (3.5-5.0) g/dL Urine Color (Yellow) Urine Appearance (Clear) Urine pH (4.6-8.0) Ur Specific [place] (1.005-1.030) Urine Protein (Negative) Urine Glucose (UA) (Negative) mg/dL Urine Ketones (Negative) Urine Blood (Negative) Urine Nitrite (Negative) Urine Bilirubin (Negative) Urine Urobilinogen (0.2) mg/dL Ur Leukocyte Esterase (Negative) U Hyaline Cast (Auto) (0-2) /LPF Urine Microscopic RBC (0-5) /HPF Urine Microscopic WBC (0-5) /HPF Ur Epithelial Cells (None Seen) /HPF Urine Bacteria (None Seen) /HPF Urine Culture Reflexed (NO) ABO Group Rh Factor Antibody Screen (NEGATIVE) 11/09/24 11/09/24 11/09/24 Range/Units 14:13 14:13 15:53 WBC (4.23-9.07) x10^3/uL RBC (4.63-6.08) x10^6/uL Hgb (13.7-17.5) g/dL Hct (40.1-51.0) % MCV (79.0-92.2) fL MCH (25.7-32.2) pg MCHC (32.3-36.5) g/dL RDW (11.6-14.4) % Plt Count (163-337) x10^3/uL MPV (9.4-12.4) fL Gran % (34.0-67.9) % Immature Gran % (Auto) (0.001-0.429) % Nucleat RBC Rel Count (0.00-0.2) % Eos # (Auto) (0.04-0.54) x10^3/uL Immature Gran # (Auto) (0.001-0.031) x10^3u/L Absolute Lymphs (auto) (1.32-3.57) x10^3/uL Absolute Monos (auto) (0.30-0.82) x10^3/uL Absolute Nucleated RBC (0.00-0.012) x10^3u/L Lymphocytes % (21.8-53.1) % Monocytes % (5.3-12.2) % Eosinophils % (0.8-7.0) % Basophils % (0.2-1.2) % Absolute Granulocytes (1.78-5.38) x10^3/uL Basophils # (0.01-0.08) x10^3/uL Sodium (135-145) mmol/L Potassium (3.5-5.1) mmol/L Chloride (98-107) mmol/L Carbon Dioxide (22-30) mmol/L Anion Gap (5-15) MEQ/L BUN (9-20) mg/dL Creatinine (0.66-1.25) mg/dL Estimated GFR ML/MIN Glucose (74-106) mg/dL POC Glucometer 108 H (74 to 106) mg/dL Calcium (8.4-10.2) mg/dL Total Bilirubin (0.2-1.3) mg/dL AST (17-59) U/L ALT (0-50) U/L Alkaline Phosphatase (38-126) U/L Troponin I < 0.012 (0.000-0.033) ng/mL Serum Total Protein (6.3-8.2) g/dL Albumin (3.5-5.0) g/dL Urine Color (Yellow) Urine Appearance (Clear) Urine pH (4.6-8.0) Ur Specific [place] (1.005-1.030) Urine Protein (Negative) Urine Glucose (UA) (Negative) mg/dL Urine Ketones (Negative) Urine Blood (Negative) Urine Nitrite (Negative) Urine Bilirubin (Negative) Urine Urobilinogen (0.2) mg/dL Ur Leukocyte Esterase (Negative) U Hyaline Cast (Auto) (0-2) /LPF Urine Microscopic RBC (0-5) /HPF Urine Microscopic WBC (0-5) /HPF Ur Epithelial Cells (None Seen) /HPF Urine Bacteria (None Seen) /HPF Urine Culture Reflexed (NO) ABO Group O Rh Factor POSITIVE Antibody Screen NEGATIVE (NEGATIVE) Accuchecks Date 11/09/24 Date 11/09/24 Date 11/09/24 Time 16:00 Time 12:00 - Radiology Impressions Radiology Exams & Impressions: Radiology Procedures Category Date Time Status ABDOMEN AND PELVIS W/0 CONTRAS [CT] Stat Exams 11/09/24 06:13 Completed TOM Encounter - TOM Encounter Attestation TOM Encounter Attestation: "IhavepersonallyseenandexamineDAMARI Potts andhavediscussed pertinent aspects of their care with Gautam [place] agree with the history, physical exam (any modifications based on my personal exam will be noted below), assessment, and plan as outlined in original note. Please see immediately below for my summary of findings and additional assessment and plan along with any meaningful corrections/explanations to the Subjective/Objective portions of the TOM note will be noted." My portion of the encounter took place via telemedicine. -Patient initially admitted with acute appendicitis, later transferred to [facility] for surgery on surgeon's request due to multiple cardiac risk factors. Sign out given to hospitalist.
[2024-11-09] MEDS ORDERED: Zofran 4 MG/2 ML VIAL IV PRN (11:19)
[2024-11-09] MEDS ORDERED: Docusate Sodium 100 MG PO PRN (11:19)
[2024-11-09] MEDS ORDERED: TYLENOL 325 MG PO PRN (11:19)
[2024-11-09] MEDS ORDERED: HUMALOG SQ PRN (11:19)
[2024-11-09] MEDS: Hydromorphone 1 mg/ml Injection IV PRN (11:46)
[2024-11-09] MEDS: Nicoderm CQ 21 MG TOP SCH (11:47)
--- NOTE | 2024-11-09 14:22 | PCM.DS ---
Discharge Summary Date of Admission: 11/09/24 09:22 Date of Discharge: 11/09/24 Admitting Physician: ANIVAL BRIGHT MD Consults: Consults on Case 11/09/24 10:11 Consult Cardiology ROUTINE Primary Care Provider: JJ STEPHENS Allergies Allergies No Known Drug Allergies Allergy (Verified 11/09/24 06:08) Hospital Summary - Hospital Course Hospital Course: Mr. LADD is a 58-year-old male with a significant and complex cardiovascular history including heart failure with reduced ejection fraction (EF reportedly 36%), coronary artery disease status post two coronary stents, prior myocardial infarction, ventricular tachycardia, chronic anticoagulation for history of deep vein thrombosis and pulmonary embolism, as well as comorbidities of type 2 diabetes mellitus, hypertension, hyperlipidemia, hypothyroidism, and diverticulitis. He presented to our emergency department on 11/09/2024 with acute right lower quadrant abdominal pain, progressively worsening over the prior 24 hours. He denied nausea, vomiting, or fever. On evaluation, he was hemodynamically stable. CT abdomen and pelvis revealed findings consistent with acute appendicitis without perforation, abscess, or phlegmon. Given his extensive cardiac history and high perioperative bleeding risk due to triple antithrombotic therapy (rivaroxaban, clopidogrel, aspirin), both surgery and cardiology consultations were obtained. After multidisciplinary discussion, the decision was made to transfer the patient to a tertiary care center with advanced cardiac and surgical services for optimal perioperative management and surgical intervention. During his stay, he was maintained NPO, received broad-spectrum intravenous antibiotics (piperacillin-tazobactam), and pain management. His anticoagulation was held. No acute cardiac decompensation occurred during hospitalization. He remained hemodynamically stable throughout the admission with telemetry monitoring.Transfer to [facility] for surgical management of acute appendicitis with advanced perioperative cardiac care, continuation of intravenous antibiotics, and careful coordination of anticoagulation and antiplatelet therapy perioperatively. I spent 35 minutes [id number] with the patient on the day of discharge performing discharge exam, discussing hospital stay and discharge instructions with patient and caregivers, preparation of discharge records, prescriptions & referral forms and addressing any questions/concerns the patient had as documented above. - Vitals & Intake/Output Vital Signs: Vital Signs Temperature 97.6 F 11/09/24 10:17 Pulse Rate 67 11/09/24 10:17 Respiratory Rate 16 11/09/24 10:17 Blood Pressure 128/69 11/09/24 10:17 O2 Sat by Pulse Oximetry 96 11/09/24 10:17 Intake & Output: Intake & Output 11/07/24 11/08/24 11/09/24 11/10/24 11:59 11:59 11:59 11:59 Intake Total 0 Balance 0 Weight 112.8 kg - Lab Result Diagrams: 11/09/24 06:46 11/09/24 06:46 Lab Results-Last 24 Hrs: Lab Results-Last 24 Hours 11/09/24 11/09/24 11/09/24 Range/Units 06:22 06:46 06:46 WBC 9.7 H (4.23-9.07) x10^3/uL RBC 3.86 L (4.63-6.08) x10^6/uL Hgb 12.6 L (13.7-17.5) g/dL Hct 37.6 L (40.1-51.0) % MCV 97.4 H (79.0-92.2) fL MCH 32.6 H (25.7-32.2) pg MCHC 33.5 (32.3-36.5) g/dL RDW 13.0 (11.6-14.4) % Plt Count 236 (163-337) x10^3/uL MPV 9.0 L (9.4-12.4) fL Gran % 81.7 H (34.0-67.9) % Immature Gran % (Auto) 0.5 H (0.001-0.429) % Nucleat RBC Rel Count 0.0 (0.00-0.2) % Eos # (Auto) 0.10 (0.04-0.54) x10^3/uL Immature Gran # (Auto) 0.05 H (0.001-0.031) x10^3u/L Absolute Lymphs (auto) 0.95 L (1.32-3.57) x10^3/uL Absolute Monos (auto) 0.64 (0.30-0.82) x10^3/uL Absolute Nucleated RBC 0.00 (0.00-0.012) x10^3u/L Lymphocytes % 9.8 L (21.8-53.1) % Monocytes % 6.6 (5.3-12.2) % Eosinophils % 1.0 (0.8-7.0) % Basophils % 0.4 (0.2-1.2) % Absolute Granulocytes 7.87 H (1.78-5.38) x10^3/uL Basophils # 0.04 (0.01-0.08) x10^3/uL Sodium 139 (135-145) mmol/L Potassium 4.9 (3.5-5.1) mmol/L Chloride 104 (98-107) mmol/L Carbon Dioxide 25 (22-30) mmol/L Anion Gap 15.2 H (5-15) MEQ/L BUN 23 H (9-20) mg/dL Creatinine 1.17 (0.66-1.25) mg/dL Estimated GFR 72.7 ML/MIN Glucose 159 H (74-106) mg/dL POC Glucometer (74 to 106) mg/dL Calcium 10.0 (8.4-10.2) mg/dL Total Bilirubin 0.60 (0.2-1.3) mg/dL AST 22 (17-59) U/L ALT 23 (0-50) U/L Alkaline Phosphatase 41 (38-126) U/L Troponin I (0.000-0.033) ng/mL Serum Total Protein 6.9 (6.3-8.2) g/dL Albumin 4.5 (3.5-5.0) g/dL Urine Color Yellow (Yellow) Urine Appearance Clear (Clear) Urine pH 7.0 (4.6-8.0) Ur Specific [place] 1.020 (1.005-1.030) Urine Protein Negative (Negative) Urine Glucose (UA) Negative (Negative) mg/dL Urine Ketones Negative (Negative) Urine Blood Negative (Negative) Urine Nitrite Negative (Negative) Urine Bilirubin Negative (Negative) Urine Urobilinogen 1.0 A (0.2) mg/dL Ur Leukocyte Esterase Negative (Negative) U Hyaline Cast (Auto) NONE SEEN (0-2) /LPF Urine Microscopic RBC 0-2 (0-5) /HPF Urine Microscopic WBC 0-2 (0-5) /HPF Ur Epithelial Cells None Seen (None Seen) /HPF Urine Bacteria None Seen (None Seen) /HPF Urine Culture Reflexed NO (NO) 11/09/24 11/09/24 11/09/24 Range/Units 06:46 10:47 11:45 WBC (4.23-9.07) x10^3/uL RBC (4.63-6.08) x10^6/uL Hgb (13.7-17.5) g/dL Hct (40.1-51.0) % MCV (79.0-92.2) fL MCH (25.7-32.2) pg MCHC (32.3-36.5) g/dL RDW (11.6-14.4) % Plt Count (163-337) x10^3/uL MPV (9.4-12.4) fL Gran % (34.0-67.9) % Immature Gran % (Auto) (0.001-0.429) % Nucleat RBC Rel Count (0.00-0.2) % Eos # (Auto) (0.04-0.54) x10^3/uL Immature Gran # (Auto) (0.001-0.031) x10^3u/L Absolute Lymphs (auto) (1.32-3.57) x10^3/uL Absolute Monos (auto) (0.30-0.82) x10^3/uL Absolute Nucleated RBC (0.00-0.012) x10^3u/L Lymphocytes % (21.8-53.1) % Monocytes % (5.3-12.2) % Eosinophils % (0.8-7.0) % Basophils % (0.2-1.2) % Absolute Granulocytes (1.78-5.38) x10^3/uL Basophils # (0.01-0.08) x10^3/uL Sodium (135-145) mmol/L Potassium (3.5-5.1) mmol/L Chloride (98-107) mmol/L Carbon Dioxide (22-30) mmol/L Anion Gap (5-15) MEQ/L BUN (9-20) mg/dL Creatinine (0.66-1.25) mg/dL Estimated GFR ML/MIN Glucose (74-106) mg/dL POC Glucometer 149 H (74 to 106) mg/dL Calcium (8.4-10.2) mg/dL Total Bilirubin (0.2-1.3) mg/dL AST (17-59) U/L ALT (0-50) U/L Alkaline Phosphatase (38-126) U/L Troponin I < 0.012 < 0.012 (0.000-0.033) ng/mL Serum Total Protein (6.3-8.2) g/dL Albumin (3.5-5.0) g/dL Urine Color (Yellow) Urine Appearance (Clear) Urine pH (4.6-8.0) Ur Specific [place] (1.005-1.030) Urine Protein (Negative) Urine Glucose (UA) (Negative) mg/dL Urine Ketones (Negative) Urine Blood (Negative) Urine Nitrite (Negative) Urine Bilirubin (Negative) Urine Urobilinogen (0.2) mg/dL Ur Leukocyte Esterase (Negative) U Hyaline Cast (Auto) (0-2) /LPF Urine Microscopic RBC (0-5) /HPF Urine Microscopic WBC (0-5) /HPF Ur Epithelial Cells (None Seen) /HPF Urine Bacteria (None Seen) /HPF Urine Culture Reflexed (NO) Micro Results-Entire Visit: Accuchecks Date 11/09/24 Date 11/09/24 Time 12:00 - Radiology Exams Ordered Rad Exams-Entire Visit: Radiology Procedures Category Date Time Status ABDOMEN AND PELVIS W/0 CONTRAS [CT] Stat Exams 11/09/24 06:13 Completed - Procedures and Test Procedures and Tests throughout Hospitalization: Therapy Orders & Screens 11/09/24 11:18 EKG ONCE Comment: Diagnosis: Appendicitis Discharge Exam General Appearance: no apparent distress Neurologic Exam: alert, oriented x 3, cooperative Eye Exam: PERRL Ears, Nose, Throat Exam: normal ENT inspection Neck Exam: normal inspection Respiratory Exam: normal breath sounds, lungs clear Cardiovascular Exam: regular rate/rhythm, normal heart sounds Gastrointestinal/Abdomen Exam: tenderness (TTP RLQ/RUQ), guarding Male Genitalia Exam: deferred Rectal Exam: deferred Back Exam: normal inspection Extremity Exam: normal inspection Skin Exam: normal color Final Diagnosis/Problem List - Final Discharge Diagnosis/Problem (1) Acute appendicitis Current Visit: Yes Status: Acute Code(s): K35.80 - UNSPECIFIED ACUTE APPENDICITIS (2) Macrocytic anemia Current Visit: Yes Status: Acute Code(s): D53.9 - NUTRITIONAL ANEMIA, UNSPECIFIED (3) Type 2 diabetes mellitus Current Visit: Yes Status: Acute (4) CAD (coronary artery disease) Current Visit: Yes Status: Acute Code(s): I25.10 - ATHSCL HEART DISEASE OF [place] CORONARY ARTERY W/O ANG PCTRS (5) Personal history of DVT (deep vein thrombosis) Current Visit: Yes Status: Acute Code(s): Z86.718 - PERSONAL HISTORY OF OTHER VENOUS THROMBOSIS AND EMBOLISM (6) HTN (hypertension) Current Visit: Yes Status: Acute Code(s): I10 - ESSENTIAL (PRIMARY) HYPERTENSION (7) HLD (hyperlipidemia) Current Visit: Yes Status: Acute Code(s): E78.5 - HYPERLIPIDEMIA, UNSPECIFIED (8) Heart failure with reduced ejection fraction (HFrEF, <= 40%) Current Visit: Yes Status: Acute Code(s): I50.20 - UNSPECIFIED SYSTOLIC (CONGESTIVE) HEART FAILURE (9) Hypothyroid Current Visit: Yes Status: Acute Code(s): E03.9 - HYPOTHYROIDISM, UNSPECIFIED - Discharge Discharge Date: 11/09/24 Disposition: DC TO [facility] Condition: Stable Prescriptions: New Docusate Sodium 100 mg [Docusate Sodium 100 MG] 100 mg PO BIDPRN PRN cap PRN Reason: Constipation Hydromorphone 1 mg/1Ml Inj [Hydromorphone 1 mg/ml Injection] 0.5 mg IV Q4H PRN PRN PRN Reason: Pain Nicotine 21 mg [Nicoderm CQ 21 MG] 21 mg TOP Q24H10 patch Piperacillin/Tazobactam 3.375G [Piperacillin/Tazobactam] 3.375 gm IV Q6HT Acetaminophen 325 mg [Tylenol 325 mg] 650 mg PO Q4H PRN PRN tablet PRN Reason: Pain, Fever, Headache Ondansetron HCl 4 mg/2 ml [Zofran 4 MG/2 ML VIAL] 4 mg IV Q6H PRN PRN PRN Reason: Nausea/Vomiting Continue Levothyroxine Sodium [Synthroid] 175 mcg PO DAILY Fenofibrate Nanocrystallized [Fenofibrate] 145 mg PO DAILY Atorvastatin Calcium 40 mg PO HS Nitroglycerin 0.4 mg (Ed) [Nitrostat 0.4 MG (ED)] 0.4 mg PO UD PRN PRN Reason: Chest Pain carvediloL [Carvedilol] 37.5 mg PO DAILY Valsartan 320 mg PO DAILY Spironolactone 25 mg [Aldactone 25 MG] 50 mg PO DAILY Hydrocodone/Acetaminophen [Hydrocodone-Acetamin 10-325 mg] 1 each PO TID Discontinued Glipizide 10 mg [Glucotrol 10 MG] 10 mg PO BID Aspirin EC 81 mg [Ecotrin 81 mg] 81 mg PO DAILY Testosterone Cypionate 1 ml IM UD Rivaroxaban [Xarelto] 20 mg PO DAILY Clopidogrel Bisulfate [Clopidogrel] 75 mg PO DAILY Follow up with: LATASHA MEANS [CONSULTING PHYSICIAN, CARDIOLOGY] JJ STEPHENS NP [Primary Care Provider, [facility]]
[2024-11-09] MEDS: PIPERACILLIN/TAZOBACTAM 3.375 GM in Sodium Chloride 0.9% 100 ML IV SCH (14:48)
[2024-11-09 15:31] LABS: ABO TYPING O; Antibody Screen NEGATIVE (NEGATIVE); RH TYPING POSITIVE
[2024-11-09 16:17] VITALS: BP 130/63; PULSE 64; RESP 19; TEMP 97.4; O2SAT 95
== END 2024-11-09 16:48 | disposition home or self-care (01) ==
LOC: ED 05:48 → MED SURG 09:22
PROVIDERS: ADMIT Internal Medicine; ATTEND Internal Medicine
DX: K35.80 Unspecified acute appendicitis (principal); D53.9 Nutritional anemia, unspecified; E11.9 Type 2 diabetes mellitus without complications; I25.10 Atherosclerotic heart disease of native coronary artery without angina pectoris; Z86.718 Personal history of other venous thrombosis and embolism; Z79.01 Long term (current) use of anticoagulants; Z79.899 Other long term (current) drug therapy; I11.0 Hypertensive heart disease with heart failure; I50.20 Unspecified systolic (congestive) heart failure; E78.5 Hyperlipidemia, unspecified; E03.9 Hypothyroidism, unspecified; F17.200 Nicotine dependence, unspecified, uncomplicated
CPT/HCPCS: 36415; 74176; 80053; 81001; 82947; 84484; 85025; 86850; 86900; 86901; 93005; 93268; 99285; G0378; J1171; A9270-GY